=== PATIENT | male | born 1950 | race African-American/Black ===

== ENCOUNTER 2018-10-23 09:58 | Emergency (ER) | payer OTHER ==
[~2018-10-23] VITALS: Ht 172.7 cm; Wt 86.2 kg
[~2018-10-23 09:58] MED LIST: CELEBREX50 MG; ENALAPRIL MALEA20 MG; LIPITOR20 MG; NORVASC5 MG; TENORMIN50 MG; [UNRECOGNIZED DRUG - OTHER]
== END 2018-10-24 07:09 | disposition home or self-care (01) ==
LOC: ER 09:58 → CPU-OBS 10:05 → ER 10-24 07:09
DX: I16.0 Hypertensive urgency (principal); I10 Essential (primary) hypertension; I48.91 Unspecified atrial fibrillation; R07.89 Other chest pain; R51 Headache